=== PATIENT | female | born 1960 | race Two or more races ===

== ENCOUNTER 2023-09-01 15:14 | Inpatient (IN) | payer MEDICARE, MEDICAID ==
[~2023-09-01] VITALS: Ht 157.5 cm; Wt 57.2 kg
[2023-09-01 16:26] LABS: BASOPHILS % 1.1 % (0.0-2.0); DIFFERENTIAL COMMENT 0; EOSINOPHILS % 0.1 % (0.0-5.0); LYMPHOCYTES % 27.7 % (20.0-50.0); MEAN CORPUSCULAR HEMOGLOBIN 32.7 pg (28.0-32.0); MEAN CORPUSCULAR HGB CONC 33.2 g/dL (31.0-37.0); MEAN CORPUSCULAR VOLUME 98.4 fL (81.0-99.0); MEAN PLATELET VOLUME 8.3 fl (7.4-10.4); MONOCYTES % 8.2 % (2.0-8.0); NEUTROPHILS % 62.9 % (40.0-76.0); PLATELET 324 x1000/uL (130-400); RED BLOOD CELL COUNT 2.06 mill/uL (4.2-5.4); RED CELL DISTRIBUTION WIDTH 17.4 % (11.6-14.6); WHITE BLOOD COUNT 14.1 x1000/uL (4.5-11.0)
[2023-09-01 16:32] LABS: HEMATOCRIT. 20.3 % (36.0-48.0); HEMOGLOBIN. 6.7 g/dL (12.0-16.0)
[2023-09-01 16:40] LABS: INR 1.1; PROTHROMBIN TIME 12.5 sec (9.6-11.0)
[2023-09-01] MEDS ORDERED: PANTOPRAZOLE 80 MG in SODIUM CHLORIDE 0.9% 100 ML IV SCH (16:45)
[2023-09-01 16:52] LABS: CARBON DIOXIDE 18 mEq/L (21-32); CHLORIDE 110 mEq/L (98-107); POTASSIUM 4.4 mEq/L (3.5-5.1); SODIUM 141 mEq/L (136-145)
[2023-09-01 16:53] LABS: CALCIUM 9.4 mg/dL (8.7-10.4)
[2023-09-01] MEDS: ONDANSETRON HCL 4MG/2ML INJ IV ONE ×2 (16:55→22:19)
[2023-09-01 16:58] LABS: CREATININE 0.7 mg/dL (0.6-1.0); GLUCOSE 131 mg/dL (70-105); TROPONIN I HIGH SENSITIVITY 26 ng/L (3.0-34); UREA NITROGEN BLOOD 42 mg/dL (9-23)
[2023-09-01 16:59] LABS: ALANINE AMINOTRANSFERASE 18 IU/L (10-49)
[2023-09-01 17:00] LABS: ALBUMIN 3.4 g/dL (3.2-4.8); ASPARTATE AMINOTRANSFERASE 24 IU/L (<34); BILIRUBIN TOTAL 0.4 mg/dL (0.1-1.0); PROTEIN TOTAL 5.5 g/dL (6.0-8.3)
[2023-09-01] MEDS: MORPHINE SULFATE 4 MG/ML INJ (FOR IV/IM USE) IV ONE (17:25)
[2023-09-01] MEDS: PANTOPRAZOLE SODIUM 40 MG/VIAL IV ONE (17:25)
[2023-09-01 18:14] LABS: LACTIC ACID 5.3 mmol/L (0.4-2.0)
[2023-09-01 18:31] LABS: TROPONIN I HIGH SENSITIVITY 28 ng/L (3.0-34)
[2023-09-01] MEDS: OCTREOTIDE 1,000 MCG in SODIUM CHLORIDE 0.9% 100 ML IV ONE (19:30)
[2023-09-01] MEDS: CEFTRIAXONE 1GM/50ML 50 ML IV STA (20:04)
[2023-09-01] MEDS: OCTREOTIDE 1,000 MCG in SODIUM CHLORIDE 0.9% 100 ML IV NR (21:18)
[2023-09-01 22:27] LABS: CLARITY URINE CLEAR (CLEAR); COLOR URINE YELLOW (YELLOW); GLUCOSE URINE NEGATIVE (NEGATIVE); KETONES URINE NEGATIVE (NEGATIVE); LEUKOCYTE ESTERASE URINE 1+ (NEGATIVE); NITRITE URINE NEGATIVE (NEGATIVE); OCCULT BLOOD URINE NEGATIVE (NEGATIVE); PROTEIN URINE NEGATIVE (NEGATIVE); SPECIFIC GRAVITY URINE 1.015 (1.005-1.030); UROBILINOGEN URINE 0.2 E.U./dL (0.2-1.0)
[2023-09-01 22:51] LABS: BACTERIA URINE 1+; RBC URINE 0-2 /hpf (0-2); SQUAMOUS EPITHELIAL CELL URINE FEW /lpf (RARE/1+)
[2023-09-02] VITALS (55 sets, daily range): BP systolic 70–208; BP diastolic 41–102; PULSE 104–154; RESP 11–33; TEMP 97.2–99
[2023-09-02] MEDS: PANTOPRAZOLE 80 MG in SODIUM CHLORIDE 0.9% 100 ML IV SCH (00:09)
[2023-09-02] MEDS ORDERED: DEXTROSE 50% WATER 50ML SYRINGE IV PRN (01:30)
[2023-09-02] MEDS: MORPHINE SULFATE 2 MG/ML CPJ (NOT FOR IM USE) IV PRN (01:45)
[2023-09-02] MEDS: ONDANSETRON HCL 4MG/2ML INJ IV PRN (01:57)
[2023-09-02] MEDS: DEXT 5%/0.45% NACL 1000ML 1,000 ML IV SCH (01:57)
[2023-09-02] MEDS: MEROPENEM 1G/100ML 100 ML IV SCH (05:50)
[2023-09-02] MEDS: METOCLOPRAMIDE HCL 10MG/2ML VIAL IV SCH (05:51)
[2023-09-02 07:21] LABS: AMMONIA 163 uMol/L (<32)
[2023-09-02 07:22] LABS: CHLORIDE 112 mEq/L (98-107); POTASSIUM 3.7 mEq/L (3.5-5.1); SODIUM 145 mEq/L (136-145)
[2023-09-02 07:23] LABS: CARBON DIOXIDE 20 mEq/L (21-32)
[2023-09-02 07:28] LABS: CREATININE 0.8 mg/dL (0.6-1.0); GLUCOSE 177 mg/dL (70-105); UREA NITROGEN BLOOD 33 mg/dL (9-23)
[2023-09-02 07:29] LABS: BASOPHILS % 0.6 % (0.0-2.0); DIFFERENTIAL COMMENT 0; LYMPHOCYTES % 16.4 % (20.0-50.0); MEAN CORPUSCULAR HEMOGLOBIN 33.3 pg (28.0-32.0); MEAN CORPUSCULAR HGB CONC 33.2 g/dL (31.0-37.0); MEAN CORPUSCULAR VOLUME 100.4 fL (81.0-99.0); MEAN PLATELET VOLUME 8.8 fl (7.4-10.4); MONOCYTES % 9.8 % (2.0-8.0); NEUTROPHILS % 73.2 % (40.0-76.0); PLATELET 281 x1000/uL (130-400); RED BLOOD CELL COUNT 1.84 mill/uL (4.2-5.4); RED CELL DISTRIBUTION WIDTH 18.2 % (11.6-14.6); WHITE BLOOD COUNT 12.8 x1000/uL (4.5-11.0)
[2023-09-02 07:30] LABS: ALANINE AMINOTRANSFERASE 21 IU/L (10-49); ALBUMIN 3.2 g/dL (3.2-4.8); ASPARTATE AMINOTRANSFERASE 26 IU/L (<34); BILIRUBIN TOTAL 0.4 mg/dL (0.1-1.0); PROTEIN TOTAL 5.6 g/dL (6.0-8.3)
[2023-09-02 07:38] LABS: HEMATOCRIT. 18.5 % (36.0-48.0); HEMOGLOBIN. 6.1 g/dL (12.0-16.0)
[2023-09-02] MEDS: BLOOD SUGAR DIAGNOSTIC STRIP TEST SCH (07:45)
[2023-09-02] MEDS ORDERED: LACTULOSE 20G/30ML UDC PO SCH (07:45)
[2023-09-02] MEDS: INSULIN LISPRO 100 UNITS/ML SUBCUT SCH (08:57)
[2023-09-02] MEDS ORDERED: CLONIDINE 0.1MG TABLET PO PRN (10:45)
[2023-09-02] MEDS ORDERED: DOCUSATE SODIUM 100MG CAPSULE PO PRN (10:45)
[2023-09-02] MEDS ORDERED: IPRATROPIUM/ALBUTEROL 0.5-3(2.5)MG/3ML NEB HHN PRN (10:45)
[2023-09-02] MEDS ORDERED: ACETAMINOPHEN 325MG TABLET PO PRN (10:45)
[2023-09-02] MEDS ORDERED: LORAZEPAM 2MG/ML INJ IV NR (10:45)
[2023-09-02] MEDS: LACTULOSE ENEMA 1,000ML BOTTLE PR SCH (11:29)
[2023-09-02] MEDS: SODIUM BICARBONATE 8.4% 1 MEQ/ML 50ML SYR IV NR (11:29)
[2023-09-02] MEDS: PANTOPRAZOLE SODIUM 40 MG/VIAL IV SCH (11:29)
[2023-09-02] MEDS: LACTATED RINGERS 1,000 ML IV SCH (11:56)
[2023-09-02] MEDS: METOPROLOL TARTRATE 5MG/5ML VIAL IV PRN (11:56)
[2023-09-02 12:46] LABS: HEMOGLOBIN 6.7 g/dL (12.0-16.0)
[2023-09-02 12:47] LABS: HEMATOCRIT 19.6 % (36.0-48.0)
[2023-09-02] MEDS: OCTREOTIDE 1,000 MCG in SODIUM CHLORIDE 0.9% 98 ML IV SCH (12:49)
[2023-09-02] MEDS: LEVETIRACETAM 500MG PREMIX 100 ML IV SCH (12:50)
[2023-09-02 12:54] LABS: CREATINE KINASE MB FRACTION 2.3 ng/mL (0.5-3.6); IRON 36 ug/dL (50-170)
[2023-09-02 12:57] LABS: CREATINE KINASE 137 IU/L (34-145); FOLIC ACID (FOLATE) SERUM > 20.00 ng/mL (>5.38); TOTAL IRON BINDING CAPACITY 324 ug/dl (250-425)
[2023-09-02 12:58] LABS: TRIOIODOTHYRONINE TOTAL 0.66 ng/ml (0.60-1.81); VITAMIN B12 SERUM 624 pg/mL (211-911)
[2023-09-02 12:59] LABS: FERRITIN 51 ng/mL (10-291); T4 FREE 0.76 ng/dL (0.89-1.76)
[2023-09-02 13:00] LABS: ETHANOL BLOOD < 10 mg/dL (<10); THYROID STIMULATING HORMONE 1.51 uIU/mL (0.55-4.78); TROPONIN I HIGH SENSITIVITY 37 ng/L (3.0-34)
[2023-09-02 13:18] LABS: LACTIC ACID 5.6 mmol/L (0.4-2.0)
[2023-09-02 15:02] LABS: BG BASE EXCESS 0.8 mmol/L (-2.0-2.0); BG CARBOXYHEMOGLOBIN 0.4 % (0.5-1.5); BG DEOXYHEMOGLOBIN 2.3 % (0.0-5.0); BG FRACTION INSPIRED OXYGEN 21; BG METHEMOGLOBIN 0.2 % (0.0-1.5); BG OXYGEN SATURATION 97.7 % (92.0-98.5); BG OXYHEMOGLOBIN 97.1 % (94.0-97.0); BG PCO2 26.5 mmHg (35.0-45.0); BG PH 7.557 (7.350-7.450); BG PO2 102.4 mmHg (75.0-100.0); BG SAMPLE SITE RIGHT RADIAL; BG TOTAL HEMOGLOBIN 6.3 g/dL (12.0-18.0); BG VENT MODE ROOM AIR
[2023-09-02 15:25] LABS: *AMPHETAMINES SCREEN URINE NEGATIVE (NEGATIVE); *BARBITURATES SCREEN URINE NEGATIVE (NEGATIVE); *BENZODIAZEPINES SCREEN URINE NEGATIVE (NEGATIVE); *COCAINE SCREEN URINE NEGATIVE (NEGATIVE); METHADONE URINE SCREEN NEGATIVE (NEGATIVE); OPIATES URINE SCREEN PRESUMPTIVE POSITIVE (NEGATIVE)
[2023-09-02 15:26] LABS: CANNABINOID URINE SCREEN NEGATIVE (NEGATIVE); ECSTASY MDMA SCREEN URINE NEGATIVE (NEGATIVE); PHENCYCLIDINE URINE SCREEN NEGATIVE (NEGATIVE)
[2023-09-02] MEDS ORDERED: NALOXONE HCL 0.4MG/ML VIAL IV PRN (15:45)
[2023-09-02] MEDS: HYDRALAZINE 20MG/ML VIAL IV PRN (15:56)
[2023-09-02] MEDS: METOPROLOL TARTRATE 5MG/5ML VIAL IV NR (16:10)
[2023-09-02] MEDS: DILTIAZEM HCL 125 MG in DEXT 5% WATER 100 ML IV PRN (16:48)
[2023-09-02] MEDS ORDERED: NICARDIPINE 50 MG in SODIUM CHLORIDE 0.9% 230 ML IV PRN (17:00)
[2023-09-02 17:03] LABS: BG BASE EXCESS -3.2 mmol/L (-2.0-2.0); BG CARBOXYHEMOGLOBIN 0.3 % (0.5-1.5); BG DEOXYHEMOGLOBIN 0.2 % (0.0-5.0); BG FRACTION INSPIRED OXYGEN 100; BG HCO3 ACT 19.1 mmol/L (22.0-26.0); BG METHEMOGLOBIN 0.7 % (0.0-1.5); BG OXYGEN SATURATION 99.8 % (92.0-98.5); BG OXYHEMOGLOBIN 98.8 % (94.0-97.0); BG PCO2 23.3 mmHg (35.0-45.0); BG PH 7.531 (7.350-7.450); BG PO2 472.8 mmHg (75.0-100.0); BG TOTAL HEMOGLOBIN 6.6 g/dL (12.0-18.0); BG VENT MODE VENT - AC
[2023-09-02] MEDS: LACTULOSE 20G/30ML UDC NG SCH (17:59)
[2023-09-02] MEDS: SODIUM CHLORIDE 0.9% 250 ML IV NR (18:00)
[2023-09-02] MEDS: LOSARTAN 100 MG TABLET PO SCH (18:00)
[2023-09-02] MEDS: PROPOFOL 10MG/ML 100ML 100 ML IV PRN (18:01)
[2023-09-02 19:45] LABS: HEMATOCRIT 18.8 % (36.0-48.0)
[2023-09-02] MEDS ORDERED: PHENYLEPHRINE 100 MG in DEXT 5% WATER 240 ML IV PRN (20:30)
[2023-09-02] MEDS: METOPROLOL TARTRATE 100MG TABLET PO SCH (21:00)
[2023-09-02 21:11] LABS: BG BASE EXCESS -2.3 mmol/L (-2.0-2.0); BG CARBOXYHEMOGLOBIN 0.3 % (0.5-1.5); BG DEOXYHEMOGLOBIN 1.1 % (0.0-5.0); BG FRACTION INSPIRED OXYGEN 50; BG HCO3 ACT 19.4 mmol/L (22.0-26.0); BG METHEMOGLOBIN 0.7 % (0.0-1.5); BG OXYGEN SATURATION 98.9 % (92.0-98.5); BG OXYHEMOGLOBIN 97.9 % (94.0-97.0); BG PH 7.583 (7.350-7.450); BG PO2 195.8 mmHg (75.0-100.0); BG SAMPLE SITE LEFT RADIAL; BG TOTAL HEMOGLOBIN 5.8 g/dL (12.0-18.0); BG VENT MODE VENT - AC
[2023-09-02] MEDS: HYDRALAZINE HCL 100MG TABLET PO SCH (22:00)
[2023-09-03] VITALS (109 sets, daily range): BP systolic 83–156; BP diastolic 48–106; PULSE 58–135; RESP 12–30; TEMP 97.5–99.8
[2023-09-03 04:18] LABS: BASOPHILS % 0.5 % (0.0-2.0); EOSINOPHILS % 0.1 % (0.0-5.0); HEMATOCRIT. 26.9 % (36.0-48.0); HEMOGLOBIN. 8.8 g/dL (12.0-16.0); LYMPHOCYTES % 22.8 % (20.0-50.0); MEAN CORPUSCULAR HEMOGLOBIN 30.4 pg (28.0-32.0); MEAN CORPUSCULAR HGB CONC 32.7 g/dL (31.0-37.0); MEAN CORPUSCULAR VOLUME 92.8 fL (81.0-99.0); MEAN PLATELET VOLUME 7.9 fl (7.4-10.4); MONOCYTES % 10.4 % (2.0-8.0); NEUTROPHILS % 66.2 % (40.0-76.0); PLATELET 178 x1000/uL (130-400); RED CELL DISTRIBUTION WIDTH 18.7 % (11.6-14.6); WHITE BLOOD COUNT 13.8 x1000/uL (4.5-11.0)
[2023-09-03 04:26] LABS: INR 1.2; PROTHROMBIN TIME 13.5 sec (9.6-11.0)
[2023-09-03 04:53] LABS: CHLORIDE 118 mEq/L (98-107); POTASSIUM 3.5 mEq/L (3.5-5.1); SODIUM 150 mEq/L (136-145)
[2023-09-03 04:55] LABS: CALCIUM 8.1 mg/dL (8.7-10.4); CARBON DIOXIDE 22 mEq/L (21-32)
[2023-09-03 05:00] LABS: AMMONIA 74 uMol/L (<32); CREATININE 0.9 mg/dL (0.6-1.0); GLUCOSE 124 mg/dL (70-105); TRIGLYCERIDE 140 mg/dL (0-150); UREA NITROGEN BLOOD 35 mg/dL (9-23)
[2023-09-03 05:01] LABS: ALANINE AMINOTRANSFERASE 22 IU/L (10-49)
[2023-09-03 05:02] LABS: ALBUMIN 2.8 g/dL (3.2-4.8); ASPARTATE AMINOTRANSFERASE 29 IU/L (<34); BILIRUBIN DIRECT 0.4 mg/dL (<=3.0); BILIRUBIN TOTAL 1.1 mg/dL (0.1-1.0); PROTEIN TOTAL 4.8 g/dL (6.0-8.3)
[2023-09-03 08:35] LABS: PHOSPHORUS 4.2 mg/dL (2.5-4.9)
[2023-09-03] MEDS: DEXT 5%/0.45% NACL 1000ML 1,000 ML IV SCH (09:01)
[2023-09-03 12:18] LABS: HEMATOCRIT 25.4 % (36.0-48.0); HEMOGLOBIN 8.4 g/dL (12.0-16.0)
[2023-09-03 12:27] LABS: BG BASE EXCESS -0.2 mmol/L (-2.0-2.0); BG CARBOXYHEMOGLOBIN 0.3 % (0.5-1.5); BG DEOXYHEMOGLOBIN 1.2 % (0.0-5.0); BG FRACTION INSPIRED OXYGEN 50; BG METHEMOGLOBIN 0.2 % (0.0-1.5); BG OXYGEN SATURATION 98.8 % (92.0-98.5); BG OXYHEMOGLOBIN 98.3 % (94.0-97.0); BG PCO2 27.2 mmHg (35.0-45.0); BG PH 7.525 (7.350-7.450); BG PO2 252.2 mmHg (75.0-100.0); BG SAMPLE SITE RIGHT RADIAL; BG VENT MODE VENT - AC
[2023-09-03] MEDS: MEROPENEM 1G/100ML IV SCH (17:40)
[2023-09-03 18:16] LABS: HEMATOCRIT 28.1 % (36.0-48.0); HEMOGLOBIN 9.2 g/dL (12.0-16.0)
[2023-09-04] VITALS (106 sets, daily range): BP systolic 82–142; BP diastolic 47–90; PULSE 50–91; RESP 12–26; TEMP 96.8–98
[2023-09-04 01:10] LABS: HEMATOCRIT 27.4 % (36.0-48.0)
[2023-09-04] MEDS ORDERED: PROPOFOL 10MG/ML 100ML 100 ML IV PRN (03:45)
[2023-09-04 04:19] LABS: BASOPHILS % 0.7 % (0.0-2.0); EOSINOPHILS % 1.3 % (0.0-5.0); HEMATOCRIT. 24.8 % (36.0-48.0); HEMOGLOBIN. 8.3 g/dL (12.0-16.0); LYMPHOCYTES % 24.4 % (20.0-50.0); MEAN CORPUSCULAR HEMOGLOBIN 31.6 pg (28.0-32.0); MEAN CORPUSCULAR HGB CONC 33.7 g/dL (31.0-37.0); MEAN CORPUSCULAR VOLUME 93.8 fL (81.0-99.0); MEAN PLATELET VOLUME 7.9 fl (7.4-10.4); MONOCYTES % 9.7 % (2.0-8.0); NEUTROPHILS % 63.9 % (40.0-76.0); PLATELET 156 x1000/uL (130-400); RED BLOOD CELL COUNT 2.64 mill/uL (4.2-5.4); RED CELL DISTRIBUTION WIDTH 20.9 % (11.6-14.6); WHITE BLOOD COUNT 9.8 x1000/uL (4.5-11.0)
[2023-09-04 04:25] LABS: CHLORIDE 120 mEq/L (98-107); SODIUM 149 mEq/L (136-145)
[2023-09-04 04:26] LABS: CALCIUM 8.7 mg/dL (8.7-10.4); CARBON DIOXIDE 21 mEq/L (21-32)
[2023-09-04 04:31] LABS: CREATININE 0.7 mg/dL (0.6-1.0); GLUCOSE 115 mg/dL (70-105); UREA NITROGEN BLOOD 22 mg/dL (9-23)
[2023-09-04 04:32] LABS: AMMONIA 44 uMol/L (<32)
[2023-09-04 04:33] LABS: ALANINE AMINOTRANSFERASE 22 IU/L (10-49); ALBUMIN 3.3 g/dL (3.2-4.8); ASPARTATE AMINOTRANSFERASE 37 IU/L (<34); BILIRUBIN DIRECT 0.3 mg/dL (<=3.0); BILIRUBIN TOTAL 0.9 mg/dL (0.1-1.0); INR 1.1; PHOSPHORUS 2.9 mg/dL (2.5-4.9); PROTEIN TOTAL 5.2 g/dL (6.0-8.3); PROTHROMBIN TIME 12.2 sec (9.6-11.0)
[2023-09-04 06:33] LABS: HEMATOCRIT 27.8 % (36.0-48.0); HEMOGLOBIN 9.1 g/dL (12.0-16.0)
[2023-09-04 08:15] LABS: BG BASE EXCESS -1.8 mmol/L (-2.0-2.0); BG CARBOXYHEMOGLOBIN 0.3 % (0.5-1.5); BG DEOXYHEMOGLOBIN 9.5 % (0.0-5.0); BG FRACTION INSPIRED OXYGEN 40; BG HCO3 ACT 22.1 mmol/L (22.0-26.0); BG METHEMOGLOBIN 0.2 % (0.0-1.5); BG OXYGEN SATURATION 90.5 % (92.0-98.5); BG PCO2 34.2 mmHg (35.0-45.0); BG PH 7.429 (7.350-7.450); BG SAMPLE SITE RIGHT RADIAL; BG TOTAL HEMOGLOBIN 8.9 g/dL (12.0-18.0); BG VENT MODE VENT - AC
[2023-09-04] MEDS: LIDOCAINE HCL 1% 10 MG/ML 10ML VIAL ONE (10:45)
[2023-09-04 13:12] LABS: HEMATOCRIT 24.6 % (36.0-48.0); HEMOGLOBIN 8.3 g/dL (12.0-16.0)
[2023-09-04] MEDS ORDERED: ONDANSETRON HCL 4MG/2ML INJ ONE ×2 (18:34→18:37)
[2023-09-04] MEDS ORDERED: PROPOFOL 200MG/20ML VIAL IV ONE ×2 (18:34)
[2023-09-04] MEDS ORDERED: MIDAZOLAM HCL 2 MG/2 ML VIAL ONE (18:37)
[2023-09-04] MEDS ORDERED: DEXAMETHASONE 4MG/ML 1ML VIAL ONE (18:37)
[2023-09-04] MEDS: METOPROLOL TARTRATE 50MG TABLET PO SCH (20:51)
[2023-09-04] MEDS: DEXMEDETOMIDINE 400 MCG/100 ML 100 ML IV PRN (21:16)
[2023-09-04 22:08] LABS: HEMOGLOBIN 8.8 g/dL (12.0-16.0)
[2023-09-05] VITALS (58 sets, daily range): BP systolic 81–134; BP diastolic 53–89; PULSE 47–88; RESP 12–19; TEMP 96.9–98
[2023-09-05 00:45] LABS: HEMATOCRIT 24.8 % (36.0-48.0); HEMOGLOBIN 8.1 g/dL (12.0-16.0)
[2023-09-05 03:45] LABS: BASOPHILS % 0.3 % (0.0-2.0); EOSINOPHILS % 0.1 % (0.0-5.0); HEMATOCRIT. 23.5 % (36.0-48.0); HEMOGLOBIN. 7.9 g/dL (12.0-16.0); LYMPHOCYTES % 20.5 % (20.0-50.0); MEAN CORPUSCULAR HEMOGLOBIN 31.1 pg (28.0-32.0); MEAN CORPUSCULAR HGB CONC 33.5 g/dL (31.0-37.0); MEAN CORPUSCULAR VOLUME 92.9 fL (81.0-99.0); MONOCYTES % 2.2 % (2.0-8.0); NEUTROPHILS % 76.9 % (40.0-76.0); PLATELET 125 x1000/uL (130-400); RED BLOOD CELL COUNT 2.53 mill/uL (4.2-5.4); RED CELL DISTRIBUTION WIDTH 20.3 % (11.6-14.6); WHITE BLOOD COUNT 3.2 x1000/uL (4.5-11.0)
[2023-09-05 03:52] LABS: CHLORIDE 115 mEq/L (98-107); POTASSIUM 3.3 mEq/L (3.5-5.1); SODIUM 146 mEq/L (136-145)
[2023-09-05 03:53] LABS: CALCIUM 7.8 mg/dL (8.7-10.4); CARBON DIOXIDE 21 mEq/L (21-32)
[2023-09-05 03:58] LABS: CREATININE 0.6 mg/dL (0.6-1.0); GLUCOSE 173 mg/dL (70-105); INR 1.1; PROTHROMBIN TIME 11.9 sec (9.6-11.0); TRIGLYCERIDE 82 mg/dL (0-150); UREA NITROGEN BLOOD 17 mg/dL (9-23)
[2023-09-05 04:00] LABS: ALANINE AMINOTRANSFERASE 17 IU/L (10-49); ALBUMIN 2.8 g/dL (3.2-4.8); ASPARTATE AMINOTRANSFERASE 20 IU/L (<34); BILIRUBIN DIRECT 0.3 mg/dL (<=3.0); BILIRUBIN TOTAL 0.8 mg/dL (0.1-1.0); PROTEIN TOTAL 4.9 g/dL (6.0-8.3)
[2023-09-05 08:23] LABS: BG BASE EXCESS -2.2 mmol/L (-2.0-2.0); BG CARBOXYHEMOGLOBIN 0.3 % (0.5-1.5); BG DEOXYHEMOGLOBIN 1.2 % (0.0-5.0); BG FRACTION INSPIRED OXYGEN 40; BG HCO3 ACT 21.7 mmol/L (22.0-26.0); BG METHEMOGLOBIN 0.2 % (0.0-1.5); BG OXYGEN SATURATION 98.8 % (92.0-98.5); BG OXYHEMOGLOBIN 98.3 % (94.0-97.0); BG PCO2 33.3 mmHg (35.0-45.0); BG PH 7.431 (7.350-7.450); BG SAMPLE SITE RIGHT RADIAL; BG TOTAL HEMOGLOBIN 8.8 g/dL (12.0-18.0); BG VENT MODE VENT - AC
[2023-09-05 08:48] LABS: BASOPHILS % 0.5 % (0.0-2.0); EOSINOPHILS % 0.4 % (0.0-5.0); HEMOGLOBIN. 8.1 g/dL (12.0-16.0); LYMPHOCYTES % 17.6 % (20.0-50.0); MEAN CORPUSCULAR HEMOGLOBIN 31.4 pg (28.0-32.0); MEAN CORPUSCULAR HGB CONC 32.3 g/dL (31.0-37.0); MEAN CORPUSCULAR VOLUME 97.4 fL (81.0-99.0); MEAN PLATELET VOLUME 8.5 fl (7.4-10.4); MONOCYTES % 3.4 % (2.0-8.0); NEUTROPHILS % 78.1 % (40.0-76.0); PLATELET 124 x1000/uL (130-400); RED BLOOD CELL COUNT 2.57 mill/uL (4.2-5.4); RED CELL DISTRIBUTION WIDTH 21.1 % (11.6-14.6); WHITE BLOOD COUNT 3.8 x1000/uL (4.5-11.0)
[2023-09-05] MEDS: KCL 20MEQ/100ML PREMIX 100 ML IV NR (09:01)
[2023-09-05 09:39] LABS: AMMONIA 50 uMol/L (<32)
[2023-09-05] MEDS: MAGNESIUM 2 G PREMIX 50 ML IV NR (10:12)
[2023-09-05 12:00] LABS: HEMATOCRIT 22.9 % (36.0-48.0); HEMOGLOBIN 7.6 g/dL (12.0-16.0)
[2023-09-05] MEDS: IRON SUCROSE COMPLEX 100 MG/5 ML ML IV SCH (13:30)
[2023-09-05] MEDS: LACTULOSE 20G/30ML UDC NG SCH (17:32)
[2023-09-05 19:17] LABS: HEMATOCRIT 23.4 % (36.0-48.0); HEMOGLOBIN 7.7 g/dL (12.0-16.0)
[2023-09-05] MEDS: ACETAMINOPHEN 325MG TABLET PO PRN (21:15)
[2023-09-06] VITALS (72 sets, daily range): BP systolic 98–129; BP diastolic 57–85; PULSE 58–82; RESP 7–23; TEMP 97–98.1
[2023-09-06 04:15] LABS: BASOPHILS % 0.7 % (0.0-2.0); EOSINOPHILS % 1.7 % (0.0-5.0); HEMATOCRIT. 23.6 % (36.0-48.0); HEMOGLOBIN. 7.9 g/dL (12.0-16.0); LYMPHOCYTES % 31.8 % (20.0-50.0); MEAN CORPUSCULAR HGB CONC 33.3 g/dL (31.0-37.0); MEAN CORPUSCULAR VOLUME 93.1 fL (81.0-99.0); NEUTROPHILS % 55.8 % (40.0-76.0); PLATELET 179 x1000/uL (130-400); RED BLOOD CELL COUNT 2.54 mill/uL (4.2-5.4); RED CELL DISTRIBUTION WIDTH 21.2 % (11.6-14.6); WHITE BLOOD COUNT 8.8 x1000/uL (4.5-11.0)
[2023-09-06 04:20] LABS: CHLORIDE 116 mEq/L (98-107); POTASSIUM 3.2 mEq/L (3.5-5.1); SODIUM 146 mEq/L (136-145)
[2023-09-06 04:21] LABS: CALCIUM 8.6 mg/dL (8.7-10.4); CARBON DIOXIDE 23 mEq/L (21-32)
[2023-09-06 04:26] LABS: CREATININE 0.7 mg/dL (0.6-1.0); GLUCOSE 105 mg/dL (70-105); UREA NITROGEN BLOOD 13 mg/dL (9-23)
[2023-09-06 04:28] LABS: ALANINE AMINOTRANSFERASE 17 IU/L (10-49); ALBUMIN 3.2 g/dL (3.2-4.8); AMMONIA 68 uMol/L (<32); ASPARTATE AMINOTRANSFERASE 24 IU/L (<34); BILIRUBIN TOTAL 0.6 mg/dL (0.1-1.0); PROTEIN TOTAL 5.1 g/dL (6.0-8.3)
[2023-09-06] MEDS: KCL 20MEQ/100ML PREMIX 100 ML IV SCH (13:14)
[2023-09-06] MEDS: SODIUM CHLORIDE 0.45% 500 ML IV ONE (13:15)
[2023-09-07] VITALS (49 sets, daily range): BP systolic 87–138; BP diastolic 49–90; PULSE 62–86; RESP 13–21; TEMP 98–98.5
[2023-09-07 04:47] LABS: CHLORIDE 110 mEq/L (98-107); POTASSIUM 3.5 mEq/L (3.5-5.1); SODIUM 140 mEq/L (136-145)
[2023-09-07 04:48] LABS: BASOPHILS % 0.5 % (0.0-2.0); CALCIUM 8.7 mg/dL (8.7-10.4); CARBON DIOXIDE 23 mEq/L (21-32); EOSINOPHILS % 3.6 % (0.0-5.0); HEMATOCRIT. 26.3 % (36.0-48.0); HEMOGLOBIN. 8.7 g/dL (12.0-16.0); LYMPHOCYTES % 25.8 % (20.0-50.0); MEAN CORPUSCULAR HEMOGLOBIN 31.2 pg (28.0-32.0); MEAN CORPUSCULAR HGB CONC 33.1 g/dL (31.0-37.0); MEAN CORPUSCULAR VOLUME 94.4 fL (81.0-99.0); MONOCYTES % 11.3 % (2.0-8.0); NEUTROPHILS % 58.8 % (40.0-76.0); PLATELET 157 x1000/uL (130-400); RED BLOOD CELL COUNT 2.79 mill/uL (4.2-5.4); RED CELL DISTRIBUTION WIDTH 20.7 % (11.6-14.6); WHITE BLOOD COUNT 8.6 x1000/uL (4.5-11.0)
[2023-09-07 04:50] LABS: AMMONIA 68 uMol/L (<32)
[2023-09-07 04:53] LABS: CREATININE 0.5 mg/dL (0.6-1.0); GLUCOSE 103 mg/dL (70-105); UREA NITROGEN BLOOD 7 mg/dL (9-23)
[2023-09-07 04:55] LABS: ALANINE AMINOTRANSFERASE 17 IU/L (10-49); ALBUMIN 3.2 g/dL (3.2-4.8); ASPARTATE AMINOTRANSFERASE 22 IU/L (<34); BILIRUBIN TOTAL 0.5 mg/dL (0.1-1.0)
[2023-09-07 04:56] LABS: PROTEIN TOTAL 5.2 g/dL (6.0-8.3)
[2023-09-08] VITALS (13 sets, daily range): BP systolic 89–132; BP diastolic 52–78; PULSE 70–93; RESP 13–23; TEMP 97.2–98.4
[2023-09-08 04:56] LABS: BASOPHILS % 0.5 % (0.0-2.0); CHLORIDE 112 mEq/L (98-107); EOSINOPHILS % 3.6 % (0.0-5.0); LYMPHOCYTES % 32.8 % (20.0-50.0); MEAN CORPUSCULAR HEMOGLOBIN 31.4 pg (28.0-32.0); MEAN CORPUSCULAR HGB CONC 33.4 g/dL (31.0-37.0); MEAN CORPUSCULAR VOLUME 93.8 fL (81.0-99.0); MEAN PLATELET VOLUME 8.4 fl (7.4-10.4); MONOCYTES % 10.9 % (2.0-8.0); NEUTROPHILS % 52.2 % (40.0-76.0); PLATELET 154 x1000/uL (130-400); POTASSIUM 3.5 mEq/L (3.5-5.1); RED BLOOD CELL COUNT 2.56 mill/uL (4.2-5.4); RED CELL DISTRIBUTION WIDTH 21.3 % (11.6-14.6); SODIUM 142 mEq/L (136-145); WHITE BLOOD COUNT 7.2 x1000/uL (4.5-11.0)
[2023-09-08 04:57] LABS: CALCIUM 7.4 mg/dL (8.7-10.4); CARBON DIOXIDE 26 mEq/L (21-32)
[2023-09-08 05:02] LABS: CREATININE 0.4 mg/dL (0.6-1.0); GLUCOSE 102 mg/dL (70-105); UREA NITROGEN BLOOD 6 mg/dL (9-23)
[2023-09-08 05:04] LABS: ALANINE AMINOTRANSFERASE 14 IU/L (10-49); ALBUMIN 2.4 g/dL (3.2-4.8); AMMONIA 29 uMol/L (<32); ASPARTATE AMINOTRANSFERASE 27 IU/L (<34); BILIRUBIN TOTAL 0.5 mg/dL (0.1-1.0)
[2023-09-08 05:05] LABS: PROTEIN TOTAL 4.3 g/dL (6.0-8.3)
[2023-09-08] MEDS: POTASSIUM CHLORIDE 20MEQ TABLET SR PO NR (12:07)
[2023-09-09] VITALS: BP 102/66; PULSE 77; RESP 20; TEMP 97.8
[2023-09-09 04:00] VITALS: BP 99/52; PULSE 89; RESP 18; TEMP 97.6
[2023-09-09 05:56] LABS: BASOPHILS % 0.7 % (0.0-2.0); EOSINOPHILS % 3.8 % (0.0-5.0); HEMATOCRIT. 24.7 % (36.0-48.0); HEMOGLOBIN. 8.2 g/dL (12.0-16.0); LYMPHOCYTES % 32.3 % (20.0-50.0); MEAN CORPUSCULAR HEMOGLOBIN 31.6 pg (28.0-32.0); MEAN CORPUSCULAR HGB CONC 33.2 g/dL (31.0-37.0); MEAN CORPUSCULAR VOLUME 95.1 fL (81.0-99.0); MEAN PLATELET VOLUME 8.1 fl (7.4-10.4); MONOCYTES % 12.8 % (2.0-8.0); NEUTROPHILS % 50.4 % (40.0-76.0); PLATELET 156 x1000/uL (130-400); RED CELL DISTRIBUTION WIDTH 20.9 % (11.6-14.6); WHITE BLOOD COUNT 5.9 x1000/uL (4.5-11.0)
[2023-09-09 06:17] LABS: CARBON DIOXIDE 28 mEq/L (21-32); CHLORIDE 111 mEq/L (98-107); POTASSIUM 3.9 mEq/L (3.5-5.1); SODIUM 143 mEq/L (136-145)
[2023-09-09 06:18] LABS: CALCIUM 7.9 mg/dL (8.7-10.4)
[2023-09-09 06:23] LABS: CREATININE 0.4 mg/dL (0.6-1.0); GLUCOSE 89 mg/dL (70-105); UREA NITROGEN BLOOD 6 mg/dL (9-23)
[2023-09-09 06:42] LABS: AMMONIA 68 uMol/L (<32)
[2023-09-09 08:00] VITALS: BP 104/61; PULSE 88; RESP 20; TEMP 98
[2023-09-09 10:27] VITALS: BP 110/54; PULSE 88; TEMP 98; O2SAT 98
[2023-09-09 12:00] VITALS: BP 110/54; PULSE 85; RESP 18; TEMP 98
[2023-09-09] MEDS: LACTULOSE 20G/30ML UDC PO SCH (13:40)
[2023-09-09] MEDS ORDERED: LEVETIRACETAM 500MG TABLET PO SCH (21:00)
== END 2023-09-09 16:07 | DRG 377 ==
LOC: ER 15:14 → 5EST 17:50 → EDBEDREQTM 17:51 → EDBEDREQ 17:51 → MICUSO 09-02 15:15 → 8WST 09-08 10:45
PROVIDERS: ADMIT Hospitalist; ATTEND Hospitalist
PROC: 5A1945Z Respiratory Ventilation, 24-96 Consecutive Hours (ICD-10-PCS; principal; 2023-09-02)
PROC: 0BH17EZ Insertion of Endotracheal Airway into Trachea, Via Natural or Artificial Opening (ICD-10-PCS; 2023-09-02)
PROC: 30233N1 Transfusion of Nonautologous Red Blood Cells into Peripheral Vein, Percutaneous Approach (ICD-10-PCS; 2023-09-03)
PROC: 02HV33Z Insertion of Infusion Device into Superior Vena Cava, Percutaneous Approach (ICD-10-PCS; 2023-09-04)
PROC: 0DB68ZX Excision of Stomach, Via Natural or Artificial Opening Endoscopic, Diagnostic (ICD-10-PCS; 2023-09-04)
PROC: 0DB88ZX Excision of Small Intestine, Via Natural or Artificial Opening Endoscopic, Diagnostic (ICD-10-PCS; 2023-09-04)
PROC: 0DB78ZX Excision of Stomach, Pylorus, Via Natural or Artificial Opening Endoscopic, Diagnostic (ICD-10-PCS; 2023-09-04)
PROC: B548ZZA Ultrasonography of Superior Vena Cava, Guidance (ICD-10-PCS; 2023-09-04)
DX: K29.71 Gastritis, unspecified, with bleeding (principal); G93.41 Metabolic encephalopathy; J96.01 Acute respiratory failure with hypoxia; I21.A1 Myocardial infarction type 2; E87.20 Acidosis, unspecified; I48.92 Unspecified atrial flutter; R65.10 Systemic inflammatory response syndrome (SIRS) of non-infectious origin without acute organ dysfunction; D62 Acute posthemorrhagic anemia; E87.0 Hyperosmolality and hypernatremia; K92.1 Melena; K74.60 Unspecified cirrhosis of liver; K44.9 Diaphragmatic hernia without obstruction or gangrene; Z96.641 Presence of right artificial hip joint; N20.0 Calculus of kidney; K76.82 Hepatic encephalopathy; F10.10 Alcohol abuse, uncomplicated; I16.0 Hypertensive urgency; I48.91 Unspecified atrial fibrillation; N28.1 Cyst of kidney, acquired; D53.9 Nutritional anemia, unspecified; D72.829 Elevated white blood cell count, unspecified; E03.9 Hypothyroidism, unspecified; I95.9 Hypotension, unspecified; K27.9 Peptic ulcer, site unspecified, unspecified as acute or chronic, without hemorrhage or perforation; E11.51 Type 2 diabetes mellitus with diabetic peripheral angiopathy without gangrene; E87.6 Hypokalemia; I10 Essential (primary) hypertension; R56.9 Unspecified convulsions; Z87.11 Personal history of peptic ulcer disease; Z90.49 Acquired absence of other specified parts of digestive tract; Z88.8 Allergy status to other drugs, medicaments and biological substances; Z79.4 Long term (current) use of insulin; Z87.442 Personal history of urinary calculi; Z90.3 Acquired absence of stomach [part of]
CPT/HCPCS: 31500; 36415; 36573; 36600; 71045; 74176; 76700; 80048; 80053; 80076; 80305; 80320; 81003; 82140; 82375; 82550; 82553; 82607; 82728; 82746; 82805; 82962; 83036; 83540; 83550; 83605; 83735; 84100; 84145; 84439; 84443; 84478; 84480; 84484; 85014; 85018; 85025; 85044; 86850; 86870; 86900; 86920; 88305; 88312; 88313; 92610; 93005; 93306; 93970; 94002; 94003; 99291; A6261; C1725; C9113; J0360; J0696; J1100; J1815; J1953; J2060; J2185; J2250; J2270; J2354; J2405; J2704; J2765; J3475; J3480; J3490; J7050; J7120; P9016; G0480